=== PATIENT | male | born 1960 | race Caucasian/White ===

== ENCOUNTER 2016-12-30 07:39 | Day surgery (SDC) | payer BC ==
[~2016-12-30 07:39] MED LIST: ACETAMINOPHEN 1000MG/100 ML PREMIX IV ONE
[2016-12-30] MEDS ORDERED: HYDROCODONE/APAP 7.5/325MG TABLET PO ONE (15:03)
[2016-12-30] MEDS ORDERED: BUPIVACAINE 0.25% W/EPI MPF 30ML VIAL IVP ONE (15:03)
[2016-12-30] MEDS ORDERED: ONDANSETRON HCL IV 4 MG/2 ML VIAL IVP ONE (15:09)
[2016-12-30] MEDS ORDERED: METOCLOPRAMIDE HCL 10 MG/2 ML VIAL IVP ONE (15:09)
[2016-12-30] MEDS ORDERED: KETOROLAC 30 MG/ML VIAL IVP ONE (15:09)
[2016-12-30] MEDS ORDERED: PROPOFOL 10 MG/ML VIAL IV ONE (15:09)
[2016-12-30] MEDS ORDERED: LIDOCAINE 2% MDV (20MG/ML) 20ML VIAL IV ONE (15:09)
[2016-12-30] MEDS ORDERED: FENTANYL PF 100MCG/2ML VIAL IV ONE (15:09)
--- NOTE | 2016-12-31 17:11 | Operative Note ---
DATE OF SURGERY: 12/30/2016 REFERRING PHYSICIAN: Erika Daily MD, FACP PREOPERATIVE DIAGNOSES: 1. Torn medial meniscus of the left knee. 2. Chondromalacia of the left knee. 3. Synovitis, left knee. POSTOPERATIVE DIAGNOSES: 1. Torn medial meniscus, left knee. 2. Osteoarthritis, left knee. 3. Synovitis, left knee, 2 compartments. OPERATIVE PROCEDURES: 1. Arthroscopic partial medial meniscectomy, left knee. 2. Arthroscopic partial synovectomy, left knee (2 compartments). 3. Arthroscopic chondroplasty, medial femoral condyle, trochlea, left knee. DESCRIPTION: This 56-year-old male was taken to the operating room and placed in the supine position on the operating room table. General anesthesia was induced and the left lower extremity was elevated. It was exsanguinated and the tourniquet inflated to 300 mmHg. Arthroscopic knee gomez applied. Right knee prepped with Hibiclens and draped in the usual sterile fashion. An inferolateral portal was established for the 4 mm arthroscope. Initial evaluation of the joint demonstrated multiple cartilaginous loose joint bodies floating free within the joint. These were evacuated. The patella was evaluated with some grade 2 chondromalacia, but it was not grossly unstable and not further disturbed; however, a grade 4 lesion in the center of the trochlea was present with full-thickness articular cartilage loss being noted there. No normal articular cartilage in the trochlea was identified. The rotating shaver was placed in the joint and chondroplasty of the trochlea was performed to remove unstable fragments of articular cartilage at the periphery of the lesion. The medial compartment was entered and the medial meniscus was probed and a complex tear was noted and this was resected with the rotating shaver and basket forceps. It was smoothed and trimmed and balanced and re-probing demonstrated restored stability. The patient had evidence of multiple cartilaginous loose joint bodies floating free within the medial compartment, and these were evacuated from the joint as well. Grade 3 chondromalacia of the entire weightbearing surface of the medial femoral condyles was also present with multiple loose fragments of articular cartilage being present, and chondroplasty was performed to stabilize this to prevent further loose cartilaginous bodies. Synovitis was present there and partial synovectomy was performed at the patellofemoral joint as well as the medial and lateral compartments. The lateral compartment was entered, and probing of the meniscus did not reveal any pathology; however, the lateral femoral condyle demonstrated grade 3 changes; however, no gross instability of the articular cartilage was present there. The joint was then copiously irrigated and suctioned, instruments were removed, the portals infiltrated with 0.25% Marcaine with epinephrine, sterile dressings applied. Tourniquet and knee gomez released, and the patient taken to the recovery room in satisfactory condition. GROSS PATHOLOGY: This patient demonstrated advanced degenerative disease with a grade 4 lesion of the trochlea, grade 2 of the patella, grade 3 of the medial femoral condyle, and grade 2 of the lateral femoral condyle. Complex tear of the posterior horn of the medial meniscus also was present, and synovitis present mostly in the anterior and medial and lateral compartments of the knee. CC: ERIKA DAILY MD, FACP DARSHANAD
== END 2016-12-30 11:20 | disposition home or self-care (01) ==
LOC: SUR 07:39
PROVIDERS: ATTEND Orthopaedic Surgery
DX: M23.222 Derangement of posterior horn of medial meniscus due to old tear or injury, left knee (principal); M17.12 Unilateral primary osteoarthritis, left knee; M65.9 Synovitis and tenosynovitis, unspecified; I10 Essential (primary) hypertension; E78.00 Pure hypercholesterolemia, unspecified
CPT/HCPCS: 29881; 29876; 01400; J1885; J2405; J3010; J2765

== ENCOUNTER 2018-06-23 09:45 | Day surgery (SDC) | payer BC ==
[2018-06-23] MEDS ORDERED: LIDOCAINE 2% MDV (20MG/ML) 20ML VIAL IV ONE (09:46)
[2018-06-23] MEDS ORDERED: PROPOFOL 10 MG/ML VIAL IV ONE (09:46)
--- NOTE | 2018-07-13 16:10 | Operative Note ---
DATE OF SERVICE: 06/23/2018. DATE OF SURGERY: 06/23/2018. REQUESTING PROVIDER: Erika Daily MD. Surgeon: Cass Medrano MD. POSTOPERATIVE DIAGNOSES: 1. Normal esophagus with no specific stricture, status post Flynn dilatation to 16 Australian. 2. Normal stomach and duodenum. 3. A 5 mm ileocecal valve polyp that was removed by cold snare. 4. Otherwise normal colon. OPERATION: 1. ESOPHAGOGASTRODUODENOSCOPY. 2. COLONOSCOPY. Indication for Procedure: This is a 58-year-old male with a history of gastroesophageal reflux disease and intermittent episodes of dysphagia, who is also average risk for colorectal cancer who presented for screening colonoscopy and esophagogastroduodenoscopy. SEDATION: Sedation is per Anesthesia. Pulse oximetry was monitored throughout the duration of the procedure to maintain O2 saturation of 90% or greater. Supplemental oxygen was administered via nasal cannula. Cardiac and vital signs were monitored throughout the duration of the procedure and they were stable. PROCEDURE: The procedure of esophagogastroduodenoscopy and colonoscopy, risks and alternatives to the procedures, including the risks of bleeding and perforation among others, were explained to the patient. He voiced understanding and agrees to have the procedure done. Physical examination was performed and the patient was found stable for sedation. The patient was then placed in the left lateral position and sedation was initiated. A plastic bite block was inserted into the oral cavity. A lubricated Olympus [id number] gastroscope was then placed in the posterior oropharynx and under direct visualization was advanced to the proximal esophagus without difficulty. The esophageal mucosa was carefully examined upon introduction of the gastroscope. The proximal, mid, and distal esophageal mucosa appeared normal. The gastroscope was then advanced into the stomach and serial examination of the stomach revealed normal gastric fundus and body with mild erythema along the gastric antrum, but no ulcers were noted. The gastroscope was advanced into the duodenum without difficulty. The duodenal bulb and descending duodenal mucosa appeared normal. The gastroscope was then withdrawn into the stomach and retroflexion was performed. There were no other lesions noted. The gastroscope was then straightened and withdrawn while carefully examining the gastric and esophageal mucosal surfaces. No other lesions noted. Multiple esophageal biopsies were obtained. The Flynn dilator size 16 Australian was then passed into the stomach with minimal resistance. The gastroscope was then withdrawn and the procedure was terminated. The patient tolerated the procedure well without immediate complications. He remained with stable vital signs and was repositioned for colonoscopy. Digital rectal exam was performed and showed small external hemorrhoids with no palpable rectal masses. A lubricated Olympus [id number] colonoscope was then inserted into the rectum and under direct visualization was advanced to the cecum without difficulty. The ileocecal valve and appendiceal orifice were identified and photographed. The colonic mucosa was carefully examined upon introduction of the colonoscope. There were no lesions noted. The ileocecal valve was intubated and the terminal ileal mucosa was inspected for about 10 cm and it appeared normal. The colonoscope was then withdrawn while carefully reexamining the colonic mucosal surfaces. On the ileocecal valve was a 5 mm size polyp that was removed by cold snare. The rest of the colon, ascending colon, transverse colon, descending colon, and sigmoid colon mucosa appeared normal. The bowel preparation was good. Retroflexion maneuver was performed, and Grade 1 internal hemorrhoids were noted. The colonoscope was then withdrawn and the procedures were terminated. The patient tolerated the procedure well without immediate complications. He remained with stable vital signs and was transferred into the Recovery Room. PLAN AND RECOMMENDATIONS: The patient needs to have a repeat colonoscopy for surveillance in about 5 years. Thank you for allowing me to participate in the care of your patient. CC: ERIKA DAILY MD, FACP MD LUIGI Nelson
== END 2018-06-23 11:50 | disposition home or self-care (01) ==
LOC: HOP 09:45
PROVIDERS: ATTEND Internal Medicine Gastroenterology
DX: Z12.11 Encounter for screening for malignant neoplasm of colon (principal); D12.0 Benign neoplasm of cecum; R13.10 Dysphagia, unspecified; Z87.19 Personal history of other diseases of the digestive system; E78.00 Pure hypercholesterolemia, unspecified; I10 Essential (primary) hypertension